=== PATIENT | male | born 1965 | race Caucasian/White ===

== ENCOUNTER → 2020-11-11 09:09 | Outpatient (CLI) | payer OTHER ==
[2020-11-11 10:37] LABS: BASOPHILS 0.8 % (0-2); EOSINOPHILS 2.1 % (0-7); HEMATOCRIT 46.5 % (42.0-54.0); HEMOGLOBIN 15.8 g/dL (13.5-17.5); LYMPHOCYTES 25.9 % (15-50); MCH 30.7 pg (26.0-34.0); MCHC 33.9 g/dL (31.0-37.0); MCV 90.5 fL (80.0-100.0); MEAN PLATELET VOLUME 7.7 fL (7.4-10.4); MONOCYTES 9.6 % (2-11); NEUTROPHILS 61.6 % (40-80); PLATELET COUNT 248 10x3/uL (130-400); RBC 5.14 10x6/uL (4.20-6.10); RDW 12.7 % (11.5-14.5); WBC 5.4 10x3/uL (4.8-10.8)
[2020-11-11 10:49] LABS: APTT 25.9 SECONDS (22.8-39.4); INR 1.07 (0.85-1.17); PROTIME 12.9 SECONDS (11.6-15.0)
[2020-11-11 11:04] LABS: ALBUMIN 4.2 g/dL (3.4-5.0); ALKALINE PHOSPHATASE 86 U/L (30-120); ALT (SGPT) 68 U/L (10-68); BILIRUBIN - DIRECT 0.26 mg/dL (0.00-0.30); BILIRUBIN - INDIRECT 1.28 mg/dL (0.00-1.00); BILIRUBIN - TOTAL 1.54 mg/dL (0.2-1.3); CALC OSMOLALITY 276 mosm/kg (275-300); CALCIUM 9.1 mg/dL (8.5-10.1); CARBON DIOXIDE 27.8 mmol/L (21.0-32.0); CHLORIDE - SERUM 103 mmol/L (98-107); FERRITIN 222 ng/mL (3-244); GAMMA GT 44 U/L (5-85); GLUCOSE 105 mg/dL (74-106); POTASSIUM - SERUM 4.7 mmol/L (3.5-5.1); PROTEIN - SERUM 7.6 g/dL (6.4-8.2); SODIUM 138 mmol/L (136-145); UREA NITROGEN 15 mg/dL (7-18); eGFR NON AFRICAN AMERICAN 83 mL/min (90-120)
[2020-11-11 11:05] LABS: % SATURATION 52 % (15-55); IRON 152 ug/dl (35-150); TOTAL IRON BIND CAPACITY 289 ug/dl (260-445); UNSAT IRON BIND CAPACITY 137 ug/dl (150-375)
[2020-11-12 07:14] LABS: HEPATITIS C ANTIBODY <0.1 S/CO RAT (0.0-0.9)
[2020-11-12 13:10] LABS: ANA REFLEX - DIRECT Negative (Negative)
[2020-11-12 14:09] LABS: ALPHA FETOPROTEIN -(TUMOR MRK) 2.4 ng/mL (0.0-8.3)
[2020-11-14 11:09] LABS: MITOCHONDRIAL ANTIBODY <20.0 Units (0.0-20.0)
[2020-11-14 12:09] LABS: SMOOTH MUSCLE ABS (ACTIN) 12 Units (0-19)
== END | disposition home or self-care (01) ==
LOC: D.US 09:09
PROVIDERS: ATTEND Internal Medicine Gastroenterology
DX: R74.8 Abnormal levels of other serum enzymes (principal); E83.119 Hemochromatosis, unspecified